=== PATIENT | female | born 1965 | race Caucasian/White ===

== ENCOUNTER 2016-03-22 15:40 | Emergency (ER) | payer BC ==
[2016-03-22 16:34] VITALS: BP 133/83; PULSE 111; RESP 16; O2SAT 100
[2016-03-22 18:16] VITALS: TEMP 97.6
== END 2016-03-22 17:35 | disposition home or self-care (01) ==
LOC: ED 15:40
DX: S52.121A Displaced fracture of head of right radius, initial encounter for closed fracture (principal)
CPT/HCPCS: 73110; 99283